=== PATIENT | female | born 1970 | race Caucasian/White ===

== ENCOUNTER 2019-01-24 03:27 | Emergency (ER) | payer OTHER, SELFPAY ==
[2019-01-24 03:28] VITALS: BP 147/98; PULSE 70; RESP 18; TEMP 36.6; O2SAT 98; BMI 28.8
--- NOTE | 2019-01-24 03:53 | ED.VISSUMM ---
- ER Visit Summary Date of Service: 01/24/19 Chief Complaint: Back pain History of Present Illness: The patient is a 48 F who presents with back pain. She does have a history of prior back pain. She complains of numbness as well as pain radiating down her left leg which she has had previously. She recently had a long car trip to [place] and her pain is been worse over the last week. She did recently complete a course of prednisone but her pain was worse since yesterday. She denies fevers, abdominal pain, urinary retention, fecal incontinence, history of back surgeries. She has been taking 800 mg ibuprofen as well as Tylenol which she states is taking the edge off. No fevers. Physical Examination: Afebrile vitals unremarkable Patient standing leaning against the bed and appears to be in pain Heart regular rate and rhythm Lungs clear Abdomen soft Back is nontender no reproducible tenderness 5 out of 5 strength with dorsiflexion, plantarflexion, extensor hallucis longus Test Results: Not indicated Emergency Department Course and Treatment: History and examination are consistent with lumbar radiculopathy. She does not have signs or symptoms of acute or surgical pathology such as epidural abscess or cauda equina syndrome. She has already been taking anti-inflammatories and also just completed steroids. Therefore we will treat with a short course of opiate analgesics. We also discussed the need for outpatient follow-up and that she may benefit from other therapies such as physical therapy. She was given [place] here and a prescription for the same. She intends to follow-up with her primary care physician. She understands to return for new or worsening symptoms. She was discharged. Treatment Plan: [] Disposition: Discharge Impression: Lumbar radiculopathy This note was generated with [employer] dictation software. It may contain incorrect words, spelling, and punctuation that were not noted in review of the chart prior to signing ED Disposition - Plan for ED Patient: Referrals: NOT,DEFINED [Primary Care Provider] -
--- NOTE | 2019-01-24 03:56 | DCINST.ED_ITS ---
ED Disposition - Plan for ED Patient: Instructions: BACK PAIN w/ SCIATICA Prescriptions: Hydrocodone Bitart/Apap 5-325 [[place] 5MG-325MG] 1 tab PO Q6H PRN PRN 3 Days #12 tab PRN Reason: Pain Prescription Printed Referrals: NOT,DEFINED [Primary Care Provider] -
[2019-01-24] MEDS: HYDROcodone Bitartrate/Apap 5/325 Tablet PO (04:01)
[2019-01-24 04:06] VITALS: RESP 20
== END 2019-01-24 04:15 | disposition home or self-care (01) ==
LOC: ED 04:09
PROVIDERS: Emergency Provider Emergency Medicine; Family Provider Student in an Organized Health Care Education/Training Program; PCP Student in an Organized Health Care Education/Training Program
DX: M54.16 Radiculopathy, lumbar region (principal); E03.9 Hypothyroidism, unspecified; Z79.899 Other long term (current) drug therapy
CPT/HCPCS: 99283

== ENCOUNTER → 2019-01-24 | Outpatient (CLI) | payer OTHER, SELFPAY ==
[2019-01-24 03:28] VITALS: BMI 28.8
--- NOTE | 2019-01-24 12:23 | RAD_ITS ---
STUDY: X-RAY - LUMBAR SPINE REASON FOR EXAM: Female, 48 years old. Chronic low back pain TECHNIQUE: 2 view(s) of the lumbar spine were obtained. COMPARISON: None FINDINGS: Normal lumbar lordosis. There is no substantial scoliosis. There is a normal alignment of the vertebrae. Bony structures are well-mineralized. No focal lytic or sclerotic bony lesions No evidence for acute fracture or subluxation. Disc space heights are well-maintained however there is very minor multilevel endplate spurring The soft tissue structures are unremarkable. RAD/Lumbar Spine 2 or 3 Views IMPRESSION: Mild spondylosis. No evidence for acute fracture or other significant bony pathology Electronically Signed: Niranjan Whittaker MD at 16:36 EDT , Service support ,
== END | disposition home or self-care (01) ==
PROVIDERS: Family Provider Student in an Organized Health Care Education/Training Program; PCP Student in an Organized Health Care Education/Training Program; Referring Provider Anesthesiology Pain Medicine; Visit Provider Anesthesiology Pain Medicine
DX: M54.9 Dorsalgia, unspecified (principal)
CPT/HCPCS: 72100

== ENCOUNTER → 2019-04-20 10:09 | Outpatient (CLI) | payer OTHER, SELFPAY ==
--- NOTE | 2019-04-20 10:22 | MRI_ITS ---
STUDY: MRI LUMBAR SPINE WITHOUT CONTRAST REASON FOR EXAM: Female, 48 years old. The patient presents with a history of low back pain with radiculopathic symptoms of the left leg and foot with numbness of the left foot x3 months. TECHNIQUE: Standardized fat and water weighted pulse sequences were obtained in the sagittal and axial planes. COMPARISON: X-RAY LUMBAR SPINE-January 24, 2019 FINDINGS: Vertebrae, Alignment and Curvature Vertebrae: There is a vertebral body hemangioma of the L2 vertebra and a right parasagittal location measuring approximately 19 mm in its craniocaudal dimension. Alignment: Normal. Curvature: Normal lordosis. No scoliosis. Thoracic Cord (visualized distal) / Conus Medullaris Normal. Terminates at the mid L1 vertebral body level Disc Space Levels N.B.: Normal level statement indicates: Normal endplates; disc height, signal and morphology; facet joints; central canal, lateral recesses, and intervertebral neuroformina. T12-L1: Normal. (Imaged only in the sagittal plane). L1-L2: Normal. L2-L3: There is mild disc desiccation with minimal annular bulging. Normal central canal and intervertebral neural foramina. L3-L4: There is disc desiccation with preservation of the disc height. There is no disc displacement. Normal central canal and intervertebral neural foramina. L4-L5: There is disc desiccation, preservation disc height, mild bilateral facet arthrosis, with a small posterior central disc protrusion (axial T2 series 5, image 8). Disc protrusion measures approximately 3 x 12 mm (AP, transverse), and is producing ventral thecal sac flattening. There remains a large central canal patent intervertebral neural foramina. L5-S1: There is disc desiccation, moderate loss of the disc height, circumferential annular bulging, moderate bilateral facet arthrosis with a posterior central to left foraminal disc herniation of broad-based disc protrusion type measuring 5 x 22 mm (AP x transverse), producing leftward ventral thecal sac flattening with neural impingement upon the descending left S1 nerve root. The intervertebral neural foramina remain widely patent. There is a small perineural cyst involving the exiting right L5 nerve root (sagittal T2 series 2, image 11; axial T2 series 5, image 25). Sacral Alae: Normal. Retroperitoneum and Paraspinal Structures Kidneys: Partially imaged with no demonstrated abnormality. Aorta: Normal. Inferior Vena Cava: Normal. Lymph Nodes: None visualized. Muscles (Paraspinal): Normal. MRI/Spine Lumbar (Routine) IMPRESSION: 1. L2-3 and L3-4 mild disc desiccation. 2. L4-5 small posterior central disc protrusion without neural impingement. 3. L5-S1 facet arthrosis with a posterior central to left foraminal disc herniation of broad-based protrusion type producing neural impingement upon the descending left S1 nerve root. Electronically Signed: Edil Braxton DO at 15:31 EDT Tel , Service support ,
== END ==
PROVIDERS: Family Provider Student in an Organized Health Care Education/Training Program; PCP Student in an Organized Health Care Education/Training Program; Referring Provider Anesthesiology Pain Medicine; Visit Provider Anesthesiology Pain Medicine
DX: M54.9 Dorsalgia, unspecified (principal); R29.898 Other symptoms and signs involving the musculoskeletal system
CPT/HCPCS: 72148

== ENCOUNTER 2021-06-16 19:02 | Emergency (ER) | payer OTHER, SELFPAY ==
[2021-06-16 19:04] VITALS: BP 145/85; PULSE 86; RESP 18; TEMP 36.3; O2SAT 100; BMI 28.8
[2021-06-16] MEDS: MethylPREDNISolone 125 MG/2 ML Vial IV (19:23)
[2021-06-16] MEDS: DiphenhydrAMINE 50 MG/ML Syringe 25 MG IV (19:25)
[2021-06-16 19:28] VITALS: BP 141/83; PULSE 79; RESP 14; O2SAT 100
--- NOTE | 2021-06-16 19:30 | EX.ED.DYSGE1 ---
HPI History of Present Illness Chief Complaint: Allergic Reaction Detail of Chief Complaint: Rash and facial swelling Informant: patient Onset/Context/Timing Onset: Hours (Onset 1400) Context: Sudden Onset Timing: Continuous Quality: Patient reports rash 2 days ago. She has rash today with facial swelling Current Severity: Moderate Maximum Severity: Moderate Worsened by: Unknown Relieved by: Nothing Associated Symptoms Associated Symptoms: Trouble swallowing Narrative Narrative: Patient is a 50-year-old woman who presents with rash that she first noted 2 days ago. She states the rash is pruritic. She states she has recurrence of the rash and involves the back of her neck anterior neck torso and extremities. It is pruritic. She also has swelling of her lips. Initially lower lip now upper lip. She also reports difficulty swallowing. She denies muffled voice. There may be slight change in her voice. She states it is difficult to swallow. She is not on an DELMI inhibitor. She has not had any berries, nuts or shellfish today. She has no known food allergies. She has no known medication allergies. She does have history of hypothyroidism. Patient has no other complaints. Prior similar symptoms: No Recent Illness/Hospitalization: No PFSH PFS Medical History Depression High cholesterol Hypothyroidism Low vitamin D level Home Medications bupropion HCl 150 mg PO DAILY 01/24/19 [History Last Taken Unknown] escitalopram oxalate 20 mg PO DAILY 01/24/19 [History Last Taken Unknown] levothyroxine 125 mcg PO DAILY 01/24/19 [History Last Taken Unknown] cholecalciferol (vitamin D3) 50,000 unit PO QWEEK 06/16/21 [History Last Taken Unknown] coenzyme Q10 [Co Q-10] 200 mg PO DAILY 06/16/21 [History Last Taken Unknown] epinephrine [EpiPen 2-Navjot] 0.3 mg IM UD PRN #2 ea 06/16/21 [Rx Last Taken Unknown] rosuvastatin 10 mg PO DAILY 06/16/21 [History Last Taken Unknown] Allergy/AdvReac Type Severity Reaction Status Date / Time No Known Allergies Allergy Verified 06/16/21 19:06 Surgical History History of bilateral fallopian tube excision Hx of lumbar discectomy Social History (Updated 06/16/21 @ 19:[address] Moris Mark MD) household members: spouse Smoking Status: Never smoker substance use type: does not use ROS ROS ED Constitutional Constitutional ED: Denies chills, fever(s), subjective, sweats or weight loss Eyes Eyes: Denies blurry vision or change in vision ENT ENT ED: Denies ear pain, rhinorrhea or sore throat Cardiovascular Cardiovascular: Denies chest pain, orthopnea or palpitations Respiratory/Chest Respiratory/Chest: Denies cough, dyspnea, dyspnea on exertion or orthopnea Gastrointestinal Gastrointestinal: Denies abdominal pain, diarrhea, nausea or vomiting Genitourinary Genitourinary ED: Denies dysuria, hematuria or urinary frequency Musculoskeletal Musculoskeletal: Denies arthralgias, back pain, myalgias or neck pain Integumentary Reports rash Neurologic Neurologic: Denies headache(s) or weakness Endocrine Endocrinology: Denies polydipsia or polyuria Allergic/Immunologic Allergic/Immunologic ED: Reports mouth swelling and urticaria; Denies tongue swelling EXAM Physical Exam Const Vital Signs: 06/16/21 19:04 06/16/21 19:28 06/16/21 20:10 Temperature 97.3 F L Temperature Source Temporal Pulse Rate 86 79 82 Respiratory Rate 18 14 18 Blood Pressure 145/85 H 141/83 H 130/73 H Blood Pressure Mean 105 102 92 Pulse Ox 100 100 97 Oxygen Delivery Method Room Air Room Air 06/16/21 22:02 Temperature Temperature Source Pulse Rate 85 Respiratory Rate 15 Blood Pressure 118/76 Blood Pressure Mean 90 Pulse Ox 96 Oxygen Delivery Method Room Air Positive well nourished and well developed General Appearance ED: well developed and NAD; Negative for pallor HEENT HEENT Narrative: Head is atraumatic normocephalic. Ears normal. Nares patent. Patient does have evidence of angioedema lower lip greater than upper. There is swelling of the soft palate and uvula. Mallampati score is 3. Eyes PERRL and EOMs intact bilaterally General Eye ED: Negative for pale conjunctiva or scleral icterus Neck no lymphadenopathy, supple and no JVD Neck Narrative: Trachea is midline. There is no inspiratory expiratory stridor. Resp normal respiratory effort and clear to auscultation bilaterally Cardio regular rate, regular rhythm, S1 normal heart sound, S2 normal heart sound and no murmurs GI normal to inspection, nondistended, normoactive bowel sounds, non-tender and non-distended Palpation: soft Back/Spine no CVA tenderness Cervical Spine: Negative for cervical spine tenderness Thoracic Spine / Upper Back: Negative for thoracic spinal tenderness or paraspinal muscle tenderness Extremity normal to inspection Neuro oriented x3 and CN's II-XII intact bilaterally Sensorium / Orientation: alert Sensory Exam: sensory level loss detected Motor Exam: strength 5/5 throughout Psych mental status grossly normal Skin No no rashes or lesions noted, no wounds and skin turgor normal General Skin Exam: Negative for jaundice or pallor Rashes: rashes noted MDM MDM MDM Narrative Medical decision making narrative: Patient presents with allergic angioedema. She has a generalized reaction. Because of her concerning angioedema she treated with epinephrine and IV diphenhydramine, Pepcid and methylprednisolone. Patient was informed she will be observed for 4 to 6 hours. Nurse informed that she feels that her throat titer. She was reexamined. The soft palate and uvula are no longer swollen. Trachea is still midline. There is no inspiratory expiratory stridor. Her rash is improving. She was reassessed at 194. Patient was reassessed at 2019. She reports improvement. Her rash is 90% better. There is no evidence of angioedema at this time. Will reassess in 30 minutes. Patient was assessed at 2148. She reports improvement. There is no dysphonia, there is no dysphagia. Her rash is essentially resolved. She is able to drink water. Patient was reassessed at 2227. Her symptoms have totally resolved. Patient was reassessed at 2256. Patient remains asymptomatic and there are no objective finding;, therefore, patient will be discharged to home. Critical Care Time Critical Care Time: Yes Critical care time (excluding procedures): 30-74 minutes (33 minutes), Including time spent: (History, physical, documentation, initiation of treatment, repeated evaluation), Discussing w/Patient &/or Family/Surveyor Hydrographic and Performing Direct Patient Care at Bedside Discharge Plan Triage Chief Complaint: Allergic Reaction ED Provider: Moris Mark Dx/Rx/DC Orders Clinical Impression: Allergic angioedema Instructions: ED General Allergic Reactions, ED Angioedema Prescriptions: New epinephrine [EpiPen 2-Navjot] 0.3 mg/0.3 mL auto-injector 0.3 mg IM UD PRN (Reason: Generalized allergic reaction) Qty: 2 RF: 0 No Action levothyroxine 88 MCG tablet 125 mcg PO DAILY RF: 0 escitalopram oxalate 20 MG tablet 20 mg PO DAILY RF: 0 bupropion HCl 150 MG tablet extended release 24 hr 150 mg PO DAILY RF: 0 rosuvastatin 10 mg tablet 10 mg PO DAILY RF: 0 coenzyme Q10 [Co Q-10] 200 mg Capsule 200 mg PO DAILY RF: 0 cholecalciferol (vitamin D3) 1,250 mcg (50,000 unit) capsule 50,000 unit PO QWEEK RF: 0 Primary Care Provider: Darrell Ornelas Referrals: Darrell Ornelas DO [Primary Care Provider] - 3-5 Days (Analilia will need allergy testing to determine the cause of her generalized reaction with angioedema) Disposition Disposition: Home, Self Care
[2021-06-16] MEDS: Famotidine 200 MG/20 ML MDV 20 MG in 0.9% Normal Saline (Pres. free 8 ML 300 MG IV (19:49)
[2021-06-16 20:10] VITALS: BP 130/73; PULSE 82; RESP 18; O2SAT 97
[2021-06-16 22:02] VITALS: BP 118/76; PULSE 85; RESP 15; O2SAT 96
[2021-06-16 23:03] VITALS: BP 120/73; PULSE 84; RESP 16; O2SAT 94
== END 2021-06-16 23:47 | disposition home or self-care (01) ==
PROVIDERS: Emergency Provider Emergency Medicine; PCP Student in an Organized Health Care Education/Training Program
DX: T78.3XXA Angioneurotic edema, initial encounter (principal); E03.9 Hypothyroidism, unspecified; F32.A Depression, unspecified; E78.00 Pure hypercholesterolemia, unspecified; E55.9 Vitamin D deficiency, unspecified; Z79.899 Other long term (current) drug therapy
CPT/HCPCS: 96372; 96374; 96375; 99283; A4216; J3490

== ENCOUNTER 2021-06-18 07:15 | Emergency (ER) | payer OTHER, SELFPAY ==
[2021-06-18 07:16] VITALS: BP 158/105; PULSE 87; RESP 20; TEMP 36.4; O2SAT 98; BMI 28.8
--- NOTE | 2021-06-18 07:48 | CT_ITS ---
STUDY: CT SOFT TISSUE NECK WITH CONTRAST REASON FOR EXAM: Female, 50 years old. Cough. Sore throat. Allergic angioedema. RADIATION DOSAGE (If Supplied By Facility): CTDIvol = ( 17.82 ) mGy, DLP = ( 574.21 ) mGycm TECHNIQUE: The patient was scanned in a multi-detector CT scanner. High resolution transaxial imaging was performed following intravenous administration of IV 75mL Isovue-370. Sagittal and coronal images were reconstructed. Individualized dose optimization techniques were used for this CT. COMPARISON: None. FINDINGS: Normal bilateral parotid glands. Normal bilateral statistician spaces. Normal bilateral parapharyngeal spaces. Normal bilateral carotid spaces. Normal bilateral sublingual and submandibular glands and spaces. Normal visualized nasopharynx. Normal retropharyngeal space. Normal perivertebral space. Normal visualized bilateral faucial tonsils. The visualized tongue, tongue base and oropharynx are normal. There are minimally enlarged lymph nodes of the neck, with preservation of normal sriram architecture, consistent with a reactive lymph hyperplasia. There is no demonstrated solid or cystic mass lesion. There is no abnormal contrast enhancement. Normal epiglottis, bilateral vallecula and hypopharynx. The pre-epiglottic and paraglottic adipose spaces are normal. Normal visualized bilateral piriform sinuses, aryepiglottic folds, vocal cords, and arytenoid-cricoid articulations. Normal subglottic trachea. Normal bilateral lobes of the thyroid gland. Normal visualized pulmonary apices. Normal visualized paranasal sinuses. Normal visualized cervical spine. CT/Soft Tissue Neck WITH Contrast IMPRESSION: Normal enhanced CT examination of the soft tissues of the neck. Electronically Signed: Dayton Hogan MD at 9:00 EST , Service support ,
--- NOTE | 2021-06-18 07:49 | EDS_ITS ---
HPI History of Present Illness Chief Complaint: Sore Throat Informant: patient Narrative Narrative: Patient seen in the emergency department today for the chief complaint of sore throat. Patient states that 2 nights ago she was seen in the emergency department with angioedema. That improved and the patient has been taking Zyrtec and Benadryl. Last night she developed a sore throat with continued symptoms this morning. No cough or rhinorrhea. She notes she has been experiencing dermatographia. No difficulty swallowing. She states her neck feels swollen. [facility] Medical History Depression High cholesterol Hypothyroidism Low vitamin D level Home Medications bupropion HCl 150 mg PO DAILY 01/24/19 [History Last Taken Unknown] escitalopram oxalate 20 mg PO DAILY 01/24/19 [History Last Taken Unknown] levothyroxine 125 mcg PO DAILY 01/24/19 [History Last Taken Unknown] cholecalciferol (vitamin D3) 50,000 unit PO QWEEK 06/16/21 [History Last Taken Unknown] coenzyme Q10 [Co Q-10] 200 mg PO DAILY 06/16/21 [History Last Taken Unknown] epinephrine [EpiPen 2-Navjot] 0.3 mg IM UD PRN #2 ea 06/16/21 [Rx Last Taken Unknown] rosuvastatin 10 mg PO DAILY 06/16/21 [History Last Taken Unknown] prednisone See Rx Instructions .ROUTE .COMPLEX #24 tablet 06/18/21 [Rx Last Taken Unknown] Allergy/AdvReac Type Severity Reaction Status Date / Time No Known Allergies Allergy Verified 06/18/21 08:03 Surgical History History of bilateral fallopian tube excision Hx of lumbar discectomy Social History household members: spouse Smoking Status: Never smoker substance use type: does not use ROS ROS ED Constitutional Constitutional ED: Denies chills or weight loss Eyes Eyes: Denies change in vision or diplopia ENT ENT ED: Reports sore throat; Denies ear pain or rhinorrhea Cardiovascular Cardiovascular: Denies chest pain, orthopnea, palpitations or racing heartbeat Respiratory/Chest Respiratory/Chest: Denies cough, dyspnea or orthopnea Gastrointestinal Gastrointestinal: Denies abdominal pain, diarrhea, nausea or vomiting Genitourinary Genitourinary ED: Denies dysuria, hematuria or urinary frequency Musculoskeletal Musculoskeletal: Denies arthralgias or myalgias Integumentary Reports rash; Denies abscess Neurologic Neurologic: Denies headache(s) or weakness Psychiatric Psychiatric: Denies anxiety, depression, suicidal ideation or suicidal thoughts Endocrine Endocrinology: Denies polydipsia, polyphagia or polyuria Allergic/Immunologic Allergic/Immunologic ED: Denies mouth swelling, tongue swelling or urticaria EXAM Physical Exam Const Vital Signs: 06/18/21 07:16 Temperature 97.5 F L Temperature Source Temporal Pulse Rate 87 Respiratory Rate 20 H Blood Pressure 158/105 H Blood Pressure Mean 122 Pulse Ox 98 Oxygen Delivery Method Room Air Positive well nourished and well developed General Appearance ED: well developed HEENT Reports normocephalic, head/scalp atraumatic, TM's clear and moist mucous membranes HEENT Narrative: There is no swelling of the tongue or the floor the mouth. There is no trismus. No stridor. Uvula appears normal. I do not see any erythema on oropharyngeal examination. She is able to lay back in the 30 degree position Tympanic Membrane ED: Yes TM's clear Eyes PERRL and EOMs intact bilaterally Neck no lymphadenopathy, supple and no JVD Resp normal respiratory effort and clear to auscultation bilaterally Cardio regular rate, regular rhythm and no murmurs GI normal to inspection, nondistended, normoactive bowel sounds and non-tender Palpation: soft Back/Spine no CVA tenderness and normal ROM Extremity normal to inspection General Extremety ED: Negative for edema General Extremity: Negative for edema Neuro oriented x3 and CN's II-XII intact bilaterally Sensorium / Orientation: alert Motor Exam: strength 5/5 throughout Psych mental status grossly normal Mood & Affect: Negative for depressed or tearful Skin no rashes or lesions noted and no wounds MDM MDM MDM Narrative Medical decision making narrative: White count is normal at 9.7. Creatinine 1.04. Soft tissue neck CT with IV contrast was negative. Patient received a dose of steroids here in the department. This point I am not seeing an obvious infectious cause. Perhaps the sore throat is related to her recent angioedema. However I do not see any airway impingement. Think would be reasonable with her continued dermatographia to place her on some steroids. Return if worsening or concerns Lab Data Attestation: I reviewed the patient's lab results. Labs: Laboratory Results - last 24 hr 06/18/21 06/18/21 07:59 07:59 WBC 9.7 RBC 4.29 Hgb 12.4 Hct 38.0 MCV 88.6 MCH 28.9 MCHC 32.6 RDW Std Deviation 43.8 RDW Coeff of [place] 13.5 Plt Count 251 MPV 11.2 Immature Gran % (Auto) 0.300 Neut % (Auto) 46.5 L Lymph % (Auto) 46.7 H [place] % (Auto) 5.8 Eos % (Auto) 0.5 Baso % (Auto) 0.2 Absolute Neuts (auto) 4.5 Absolute Lymphs (auto) 4.52 H Nucleated RBC % 0 Sodium 142 Potassium 3.6 Chloride 108 H Carbon Dioxide 29.0 Anion Gap 5 BUN 17 Creatinine 1.04 H Estim Creat Clear Calc 63.83 Est GFR (MDRD) Af Amer 71 Est GFR (MDRD) Non-Af 59 L BUN/Creatinine Ratio 16.3 Glucose 89 Calcium 8.9 Total Bilirubin 0.30 AST 13 L ALT 34 Alkaline Phosphatase 64 Total Protein 6.5 Albumin 3.2 Globulin 3.3 Albumin/Globulin Ratio 1.0 Radiography Diagnostic Testing: Clinical Impression(s) from Imaging Studies Soft Tissue Neck CT 06/18/21 07:48 IMPRESSION: Normal enhanced CT examination of the soft tissues of the neck. Electronically Signed: Dayton Hogan MD at 9:00 EST , Service support , Discharge Plan Triage Chief Complaint: Sore Throat ED Provider: Mohit Verma Dx/Rx/DC Orders Clinical Impression: Acute sore throat Instructions: ED Pain, Acute, Uncertain Cause Prescriptions: New prednisone 20 MG tablet See Rx Instructions .ROUTE .COMPLEX Qty: 24 RF: 0 No Action levothyroxine 88 MCG tablet 125 mcg PO DAILY RF: 0 escitalopram oxalate 20 MG tablet 20 mg PO DAILY RF: 0 bupropion HCl 150 MG tablet extended release 24 hr 150 mg PO DAILY RF: 0 rosuvastatin 10 mg tablet 10 mg PO DAILY RF: 0 coenzyme Q10 [Co Q-10] 200 mg Capsule 200 mg PO DAILY RF: 0 cholecalciferol (vitamin D3) 1,250 mcg (50,000 unit) capsule 50,000 unit PO QWEEK RF: 0 epinephrine [EpiPen 2-Navjot] 0.3 mg/0.3 mL auto-injector 0.3 mg IM UD PRN (Reason: Generalized allergic reaction) Qty: 2 RF: 0 Primary Care Provider: Darrell Ornelas Referrals: Darrell Ornelas, DO [Primary Care Provider] - 3-5 Days if not improving Disposition Disposition: Home, Self Care
[2021-06-18] MEDS: MethylPREDNISolone 125 MG/2 ML Vial IV (08:05)
[2021-06-18 08:08] LABS: Absolute Lymphocyte Count 4.52 X10^3/uL (0.83-4.51); Absolute Neutrophil Count 4.5 X10^3/uL (2.0-7.7); Basophil# 0.02 X10^3/uL; Basophil% 0.2 % (0-1); Eosinophil# 0.05 X10^3/uL; Eosinophils% 0.5 % (0-5); Hemoglobin 12.4 g/dL (12.0-15.0); Lymphocyte # 4.52 X10^3/ul (0.83-4.51); Lymphocyte % 46.7 % (19-41); Mean Corp Hgb Conc 32.6 g/dL (32-36); Mean Corpuscular Hgb 28.9 pg (27.0-32.0); Mean Corpuscular Volume 88.6 fL (81-99); Mean Platelet Vol. 11.2 fl (6.2-12.0); Monocyte# 0.56 X10^3/uL; Monocyte% 5.8 % (0-10); NRBC Flagged by Analyzer 0 % (0-5); Neutrophil # 4.49 X10^3/uL (2.7-7.7); Neutrophil % 46.5 % (47-70); Platelet Count 251 K/mm3 (150-450); RBC Distribution Width CV 13.5 % (11.6-14.6); RBC Distribution Width SD 43.8 fl (35.1-43.9); Red Blood Count 4.29 M/mm3 (4.2-5.4); White Blood Count 9.7 K/mm3 (4.4-11.0)
[2021-06-18 08:24] LABS: AST(SGOT) 13 U/L (15-37); Alanine Aminotransfer ALT/SGPT 34 U/L (13-56); Albumin, Serum 3.2 g/dL (3.2-5.0); Alkaline Phosphatase 64 U/L (45-117); Anion Gap 5 (5-15); BUN 17 mg/dL (7-18); BUN/Creat Ratio 16.3 RATIO (10-20); Calcium,Total 8.9 mg/dL (8.5-10.1); Chloride 108 mmol/L (98-107); Creatinine, Serum 1.04 mg/dL (0.55-1.02); EST Glomerular Filtration Rate 59 mL/min (>60); Est Glom Filt Rate - Afr Amer 71 mL/min (>60); Estimated Creatinine Clearance 63.83 ml/min; Globulin 3.3 g/dL (2.2-4.2); Glucose 89 mg/dL (74-106); Potassium 3.6 mmol/L (3.5-5.1); Protein, Total 6.5 g/dL (6.4-8.2); Sodium Level 142 mmol/L (136-145)
== END 2021-06-18 11:30 | disposition home or self-care (01) ==
PROVIDERS: Emergency Provider Emergency Medicine; PCP Student in an Organized Health Care Education/Training Program
DX: J02.9 Acute pharyngitis, unspecified (principal); E03.9 Hypothyroidism, unspecified; E78.00 Pure hypercholesterolemia, unspecified; F32.A Depression, unspecified; E55.9 Vitamin D deficiency, unspecified; Z79.899 Other long term (current) drug therapy
CPT/HCPCS: 70491; 80053; 85025; 96374; 99283; Q9967; A4216

== ENCOUNTER → 2021-06-19 13:26 | Outpatient (CLI) | payer OTHER, SELFPAY ==
[2021-06-19 13:45] LABS: Bacteria 0 SEEN /hpf (None Seen); Mucous, Urine 0 SEEN /hpf (<or=2+); Red Blood Cells-Urine 0 SEEN /hpf (0-5)
[2021-06-19 15:55] LABS: Color, Urine Yellow (Yellow); Glucose, Dipstick Normal (Normal); Ketone-Dipstick Negative (Negative); Leukocyte Esterase-Dipstick 25 /ul (Negative); Nitrite-Dipstick Negative (Negative); Occult Blood-Urine Negative /ul (Negative); Protein-Dipstick Negative (Negative); Specific Gravity, Urine 1.015 (1.002-1.030); Urine Bilirubin Dipstick Negative (Negative); Urine Clarity Clear (Clear); Urine Urobilinogen Normal (Normal)
[2021-06-19 16:13] LABS: Squamous Epithelial Cells - UA 0-5 SEEN /hpf (5-10); White Blood Cells 0-5 SEEN /hpf (0-5)
[2021-06-19 16:17] LABS: Anion Gap 6 (5-15); BUN 17 mg/dL (7-18); BUN/Creat Ratio 17.3 RATIO (10-20); Calcium,Total 9.4 mg/dL (8.5-10.1); Chloride 106 mmol/L (98-107); Creatinine, Serum 0.98 mg/dL (0.55-1.02); EST Glomerular Filtration Rate 63 mL/min (>60); Est Glom Filt Rate - Afr Amer 76 mL/min (>60); Glucose 108 mg/dL (74-106); Sodium Level 141 mmol/L (136-145)
[2021-06-24 16:09] LABS: Crab <0.10 kU/L (Class 0); Lobster <0.10 kU/L (Class 0)
[2021-06-24 16:59] LABS: Clam <0.10 kU/L (Class 0); Shrimp <0.10 kU/L (Class 0)
== END ==
PROVIDERS: PCP Student in an Organized Health Care Education/Training Program; Visit Provider Student in an Organized Health Care Education/Training Program
DX: L50.9 Urticaria, unspecified (principal); T78.3XXD Angioneurotic edema, subsequent encounter
CPT/HCPCS: 36415; 80048; 81001; 83520; 86003

== ENCOUNTER → 2021-07-27 09:06 | Outpatient (CLI) | payer OTHER, SELFPAY ==
[2021-07-27 09:36] LABS: Absolute Lymphocyte Count 2.57 X10^3/uL (0.83-4.51); Absolute Neutrophil Count 2.2 X10^3/uL (2.0-7.7); Basophil# 0.03 X10^3/uL; Basophil% 0.5 % (0-1); Eosinophil# 0.14 X10^3/uL; Eosinophils% 2.5 % (0-5); Hematocrit 39.1 % (37-47); Hemoglobin 12.7 g/dL (12.0-15.0); Lymphocyte # 2.57 X10^3/ul (0.83-4.51); Lymphocyte % 46.7 % (19-41); Mean Corp Hgb Conc 32.5 g/dL (32-36); Mean Corpuscular Volume 89.3 fL (81-99); Mean Platelet Vol. 10.9 fl (6.2-12.0); Monocyte# 0.57 X10^3/uL; Monocyte% 10.4 % (0-10); NRBC Flagged by Analyzer 0 % (0-5); Neutrophil # 2.18 X10^3/uL (2.7-7.7); Neutrophil % 39.7 % (47-70); Platelet Count 269 K/mm3 (150-450); RBC Distribution Width CV 13.5 % (11.6-14.6); RBC Distribution Width SD 43.8 fl (35.1-43.9); Red Blood Count 4.38 M/mm3 (4.2-5.4); White Blood Count 5.5 K/mm3 (4.4-11.0)
[2021-07-27 09:54] LABS: Erythrocyte Sedimentation Rate 6 mm/hr (0-30)
[2021-07-27 10:20] LABS: AST(SGOT) 19 U/L (15-37); Alanine Aminotransfer ALT/SGPT 33 U/L (13-56); Albumin, Serum 3.3 g/dL (3.2-5.0); Alkaline Phosphatase 63 U/L (45-117); Bilirubin, Direct 0.11 mg/dL (0.00-0.30); Globulin 3.7 g/dL (2.2-4.2); Thyroid Stim Hormone (TSH) 0.23 uIU/mL (0.358-3.74)
== END ==
PROVIDERS: PCP Student in an Organized Health Care Education/Training Program
DX: L50.8 Other urticaria (principal)
CPT/HCPCS: 36415; 80076; 84443; 85025; 85652

== ENCOUNTER 2021-09-14 07:18 | Outpatient (CLI) | payer OTHER, SELFPAY ==
--- NOTE | 2021-09-14 07:21 | US_ITS ---
STUDY: ABDOMINAL ULTRASOUND - RIGHT UPPER QUADRANT REASON FOR VISIT: Female, 51 years old FATTY LIVER TECHNIQUE: Ultrasound evaluation of the right upper quadrant was performed with real-time and static flynn-scale imaging. TECHNICAL QUALITY: Adequate. COMPARISON: None. FINDINGS: Liver: The liver measures 14.9 cm. There is increased echogenicity consistent with fatty infiltration. The bile ducts are within normal limits. There is hepatic color flow. The direction of portal flow is hepatopetal. There is no demonstrated mass lesion. Gallbladder: Normal distended gallbladder. The gallbladder wall measures 2.8 mm. There is a negative sonographic Mendez''s sign. There is no pericholecystic fluid. There are no gallstones. Common Bile Duct (C.B.D.): The common bile duct measures 5.1 mm. Pancreas: Normal size of the head, body and tail of the pancreas. There is normal echogenicity of the pancreas. There is no demonstrated pancreatic mass or cyst. Right Kidney: Normal size of the right kidney. The right kidney measures 10.9 cm x 4.7 cm x 5.2 cm. Normal renal cortex. The right cortex measures 1.5 cm. There is no demonstrated renal mass or cyst. There is no right hydronephrosis. US/Abdomen Limited IMPRESSION: Fatty infiltration of the liver. Electronically Signed: Dayton Hogan MD at 14:52 EST ,
--- NOTE | 2021-09-14 07:22 | US_ITS ---
STUDY: ABDOMINAL ULTRASOUND - ELASTOGRAPHY REASON FOR VISIT: Female, 51 years old. Fatty liver. TECHNIQUE: Liver stiffness measurements were obtained on a Snapette RS 85 ultrasound machine using a CA 1-7 probe following the SRU guidelines. 3 measurements were obtained using a 2-D-SWE method. The IQR/M was 20 % suggesting a quality data set. TECHNICAL QUALITY: Adequate. COMPARISON: Comparison is made with prior examination from earlier today. FINDINGS: Liver: Fatty infiltration of the liver. Median liver stiffness measured 7 kPa. US/Elastography Parenchyma/Organ IMPRESSION: Liver stiffness measures 7 kPa compatible with F 2/F3 Metavir score. Electronically Signed: Dayton Hogan MD at 15:37 EST ,
== END 2021-09-14 23:59 | disposition home or self-care (01) ==
PROVIDERS: PCP Student in an Organized Health Care Education/Training Program; Referring Provider Student in an Organized Health Care Education/Training Program; Visit Provider Student in an Organized Health Care Education/Training Program
DX: K76.0 Fatty (change of) liver, not elsewhere classified (principal)
CPT/HCPCS: 76705; 76981

== ENCOUNTER 2021-09-25 11:21 | Outpatient (CLI) | payer OTHER, SELFPAY ==
[2021-09-25 12:18] LABS: Erythrocyte Sedimentation Rate 6 mm/hr (0-30)
[2021-09-25 12:46] LABS: CRP 5.41 mg/L (0.0-3.0); Ferritin 26 ng/mL (8-252); LDH 201 U/L (84-246)
[2021-09-25 12:55] LABS: Hemoglobin A1c 5.4 % (3.8-5.6)
[2021-09-25 13:12] LABS: HIV - WCH Non-Reactive (Nonreactive)
[2021-09-26 15:08] LABS: Anti-Centromere B Ab <0.2 AI (0.0-0.9); Anti-Chromatin <0.2 AI (0.0-0.9); Anti-Jo <0.2 AI (0.0-0.9); Anti-Scleroderma-70 AB <0.2 AI (0.0-0.9); RNP Ab <0.2 AI (0.0-0.9); SJOGREN'S Anti-SS-A test < 0.2 AI (0.0-0.9); SJOGREN'S Anti-SS-B test < 0.2 AI (0.0-0.9); Smith Ab <0.2 AI (0.0-0.9)
[2021-09-27 17:22] LABS: Anti-Mitochondrial AB <20.0 Units (0.0-20.0); Anti-dsDNA Ab <1 IU/mL (0-9)
[2021-09-29 17:08] LABS: Angiotensin Convert Enzyme 33 U/L (14-82); Ceruloplasmin 24.1 mg/dL (19.0-39.0); Cytoplasmic Ab (C-ANCA) <1:20 titer (Neg:<1:20); HEPATITIS B SURFACE AG Negative (Negative); Hepatitis A IgM Antibody Negative (Negative); Hepatitis B Core AB IgM Negative (Negative)
[2021-09-29 17:43] LABS: AFP, Tumor Marker 5.5 ng/mL (0.0-9.2); Anti-Smooth Muscle ABS 8 Units (0-19); Copper, Serum or Plasma 103 ug/dL (80-158); Haptoglobin 114 mg/dL (33-346); Hep C Antibodies <0.1 s/co ratio (0.0-0.9); Perinuclear Ab (P-ANCA) <1:20 titer (Neg:<1:20)
== END 2021-09-25 23:59 | disposition home or self-care (01) ==
PROVIDERS: PCP Student in an Organized Health Care Education/Training Program; Visit Provider Internal Medicine Gastroenterology
DX: K76.0 Fatty (change of) liver, not elsewhere classified (principal)
CPT/HCPCS: 36415; 80074; 82105; 82164; 82390; 82525; 82728; 83010; 83036; 83516; 83615; 85652; 86140; 86225; 86235; 86256; 86703

== ENCOUNTER 2021-10-16 07:28 | Outpatient (CLI) | payer OTHER, SELFPAY ==
[2021-10-16 08:42] LABS: AST(SGOT) 39 U/L (15-37); Alanine Aminotransfer ALT/SGPT 59 U/L (13-56); Albumin, Serum 3.7 g/dL (3.2-5.0); Alkaline Phosphatase 105 U/L (45-117); Anion Gap 3 (5-15); BUN 12 mg/dL (7-18); BUN/Creat Ratio 11.3 RATIO (10-20); Calcium,Total 9.5 mg/dL (8.5-10.1); Chloride 107 mmol/L (98-107); Cholesterol 156 mg/dL (200); Creatinine, Serum 1.06 mg/dL (0.55-1.02); EST Glomerular Filtration Rate 58 mL/min (>60); Est Glom Filt Rate - Afr Amer 70 mL/min (>60); Free T3 1.9 pg/mL (2.18-3.98); Globulin 3.6 g/dL (2.2-4.2); Glucose 103 mg/dL (74-106); High Density Lipoprotein 43 mg/dL; Potassium 4.1 mmol/L (3.5-5.1); Protein, Total 7.3 g/dL (6.4-8.2); Sodium Level 139 mmol/L (136-145); T4 Free Direct 0.76 ng/dL (0.76-1.46); Thyroid Stim Hormone (TSH) 1.43 uIU/mL (0.358-3.74); Triglycerides 185 mg/dL; Very Low Density Lipoprotein 37 mg/dL (5-40)
[2021-10-16 09:42] LABS: Vitamin D,25 Hydroxy 63.6 ng/mL
[2021-10-16 18:18] LABS: CPK Total, Creatine Kinase 124 U/L (26-192)
[2021-10-17 10:32] LABS: Thyroid Peroxidase AB 18 IU/mL (0-34)
== END 2021-10-16 23:59 | disposition home or self-care (01) ==
LOC: LAB 07:31
PROVIDERS: PCP Student in an Organized Health Care Education/Training Program; Referring Provider Internal Medicine Gastroenterology; Visit Provider Internal Medicine Gastroenterology
DX: E06.3 Autoimmune thyroiditis (principal); E55.9 Vitamin D deficiency, unspecified; E78.5 Hyperlipidemia, unspecified
CPT/HCPCS: 36415; 80053; 80061; 82306; 82550; 83090; 84439; 84443; 84481; 86376

== ENCOUNTER 2021-11-02 12:46 | Outpatient (CLI) | payer OTHER, SELFPAY ==
[2021-11-02 14:03] LABS: Uric Acid 4.8 mg/dL (2.6-6.0)
== END 2021-11-02 23:59 | disposition home or self-care (01) ==
LOC: LAB 12:47
PROVIDERS: PCP Student in an Organized Health Care Education/Training Program; Referring Provider Internal Medicine Gastroenterology; Visit Provider Internal Medicine Gastroenterology
DX: M10.9 Gout, unspecified (principal)
CPT/HCPCS: 36415; 84550

== ENCOUNTER → 2022-03-05 | Outpatient (CLI) | payer OTHER, SELFPAY ==
[2022-03-05 16:39] LABS: Erythrocyte Sedimentation Rate 17 mm/hr (0-30)
[2022-03-05 17:04] LABS: CRP < 2.90 mg/L (0.0-3.0)
[2022-03-11 16:09] LABS: Alternaria alternata <0.10 kU/L (Class 0); Aspergillus fumigatus <0.10 kU/L (Class 0); Bahia Grass <0.10 kU/L (Class 0); Bermuda Grass <0.10 kU/L (Class 0); Bluegrass, Kentucky <0.10 kU/L (Class 0); Cat Hair/Dander, Standard <0.10 kU/L (Class 0); Cedar, Mountain <0.10 kU/L (Class 0); Cladosporium herbarum <0.10 kU/L (Class 0); Clam <0.10 kU/L (Class 0); Cockroach, American <0.10 kU/L (Class 0); Codfish <0.10 kU/L (Class 0); Corn <0.10 kU/L (Class 0); D farinae Mite <0.10 kU/L (Class 0); D pteronyssinus <0.10 kU/L (Class 0); Dog Epithelia <0.10 kU/L (Class 0); Egg, White <0.10 kU/L (Class 0); Elm, American White <0.10 kU/L (Class 0); Hazelnut Tree <0.10 kU/L (Class 0); Hickory, White <0.10 kU/L (Class 0); Johnson Grass <0.10 kU/L (Class 0); Maple/Box Elder <0.10 kU/L (Class 0); Milk (Cow) <0.10 kU/L (Class 0); Mucor racemosus <0.10 kU/L (Class 0); Mugwort <0.10 kU/L (Class 0); Mulberry, White <0.10 kU/L (Class 0); Nettle <0.10 kU/L (Class 0); Oak, White <0.10 kU/L (Class 0); Peanut <0.10 kU/L (Class 0); Penicillium chrysogen <0.10 kU/L (Class 0); Pigweed, Rough <0.10 kU/L (Class 0); Plantain, English <0.10 kU/L (Class 0); Ragweed, Short/Common <0.10 kU/L (Class 0); SCALLOP <0.10 kU/L (Class 0); Sheep Sorrel(Dock) <0.10 kU/L (Class 0); Shrimp <0.10 kU/L (Class 0); Soybean <0.10 kU/L (Class 0); Stemphylium herbarum <0.10 kU/L (Class 0); Sweet Gum <0.10 kU/L (Class 0); Sycamore, American <0.10 kU/L (Class 0); Walnut, (Food) <0.10 kU/L (Class 0); Wheat <0.10 kU/L (Class 0)
[2022-03-12 04:07] LABS: Alternaria tenuis <0.10 kU/L (Class 0); Ash, White <0.10 kU/L (Class 0); Aspergillus fumigatus <0.10 kU/L (Class 0); Bermuda Grass <0.10 kU/L (Class 0); Birch <0.10 kU/L (Class 0); Black Walnut <0.10 kU/L (Class 0); Cat Hair / Dander,Stand <0.10 kU/L (Class 0); Cedar, Mountain <0.10 kU/L (Class 0); Cladosporium herbarum <0.10 kU/L (Class 0); Cockroach, American <0.10 kU/L (Class 0); Cottonwood <0.10 kU/L (Class 0); D farinae Mite <0.10 kU/L (Class 0); D pteronyssinus <0.10 kU/L (Class 0); Dog Epithelia <0.10 kU/L (Class 0); Elm, American White <0.10 kU/L (Class 0); Immunoglobulin A 199 mg/dL (87-352); Immunoglobulin E 9 IU/mL (6-495); Immunoglobulin G 836 mg/dL (586-1602); Immunoglobulin M 57 mg/dL (26-217); Maple/Box Elder <0.10 kU/L (Class 0); Mulberry, White <0.10 kU/L (Class 0); Oak, White <0.10 kU/L (Class 0); Pecan <0.10 kU/L (Class 0); Penicillium Notatum <0.10 kU/L (Class 0); Pigweed, Rough <0.10 kU/L (Class 0); Ragweed, Short/Common <0.10 kU/L (Class 0); Russian Thistle <0.10 kU/L (Class 0); Sheep Sorrel <0.10 kU/L (Class 0); Sycamore, American <0.10 kU/L (Class 0); Timothy Grass <0.10 kU/L (Class 0)
[2022-03-12 17:41] LABS: SESAME SEED <0.10 kU/L (Class 0)
[2022-03-12 18:01] LABS: Immunoglobulin E 10 IU/mL (6-495); Mouse Urine <0.10 kU/L (Class 0)
== END | disposition home or self-care (01) ==
LOC: LAB 15:47
PROVIDERS: PCP Student in an Organized Health Care Education/Training Program; Visit Provider Internal Medicine Gastroenterology
DX: J30.9 Allergic rhinitis, unspecified (principal); K76.0 Fatty (change of) liver, not elsewhere classified
CPT/HCPCS: 36415; 82784; 82785; 85652; 86003; 86140

== ENCOUNTER → 2022-03-08 | Outpatient (CLI) | payer OTHER, SELFPAY ==
[2022-03-10 14:09] LABS: Complement C3 191 mg/dL (82-167)
[2022-03-10 14:27] LABS: Complement CH50 > 60 U/mL (>41)
== END | disposition home or self-care (01) ==
PROVIDERS: PCP Student in an Organized Health Care Education/Training Program; Referring Provider Internal Medicine Gastroenterology; Visit Provider Internal Medicine Gastroenterology
DX: E66.9 Obesity, unspecified (principal)
CPT/HCPCS: 36415; 86160; 86162

== ENCOUNTER → 2022-04-13 | Outpatient (CLI) | payer OTHER, SELFPAY ==
--- NOTE | 2022-04-13 07:08 | BI_ITS ---
MAMMOGRAPHY - BILATERAL SCREENING REASON FOR EXAM: Female, 51 years old. Routine annual screening examination. PERTINENT HISTORY: Mother with breast cancer. Aunt with breast cancer. TECHNIQUE: Digital bilateral breast bronwyn (3D mammographic acquisition) in the CC and MLO projections. 2-D mediolateral oblique (MLO) and craniocaudad (CC) views of both breasts were obtained. CAD: Full Field Digital Mammography with Computer Added Detection was performed. COMPARISON: Comparison is made with prior outside examination dated 01/30/2021 and 01/30/2020. FINDINGS: Breast Composition: The breasts are heterogeneously dense, which may obscure small masses. There are no dominant masses or suspicious calcifications. No other significant abnormalities are identified. There has been no significant change since the prior study. BI/SCRN MAMM (CAD)W/BRONWYN BILAT IMPRESSION: Stable bilateral screening mammogram. Yearly follow-up mammogram recommended. (A) ASSESSMENT CATEGORY: BIRADS Category 1: Negative. A letter regarding these results will be sent to the patient by the facility within 30 days. Approximately 10% of breast cancers are not detected by mammography. A normal mammogram should not delay biopsy of a clinically suspicious abnormality. [id number] Electronically Signed: Dayton Hogan MD at 8:40 EDT ,
== END | disposition home or self-care (01) ==
LOC: OPBI 07:07
PROVIDERS: PCP Student in an Organized Health Care Education/Training Program; Visit Provider Obstetrics & Gynecology
DX: Z12.31 Encounter for screening mammogram for malignant neoplasm of breast (principal)
CPT/HCPCS: 77063; 77067

== ENCOUNTER → 2023-01-13 | Outpatient (CLI) | payer OTHER, SELFPAY ==
[2023-01-13 11:06] LABS: Absolute Lymphocyte Count 1.72 X10^3/uL (0.83-4.51); Absolute Neutrophil Count 3.3 X10^3/uL (2.0-7.7); Basophil# 0.02 X10^3/uL; Basophil% 0.3 % (0-1); Eosinophils% 3.5 % (0-5); Hematocrit 40.5 % (37-47); Hemoglobin 13.4 g/dL (12.0-15.0); Lymphocyte # 1.72 X10^3/ul (0.83-4.51); Mean Corp Hgb Conc 33.1 g/dL (32-36); Mean Corpuscular Hgb 29.3 pg (27.0-32.0); Mean Corpuscular Volume 88.6 fL (81-99); Mean Platelet Vol. 10.9 fl (6.2-12.0); Monocyte# 0.45 X10^3/uL; Monocyte% 7.9 % (0-10); NRBC Flagged by Analyzer 0 % (0-5); Neutrophil # 3.32 X10^3/uL (2.7-7.7); Platelet Count 230 K/mm3 (150-450); RBC Distribution Width CV 13.4 % (11.6-14.6); RBC Distribution Width SD 42.9 fl (35.1-43.9); Red Blood Count 4.57 M/mm3 (4.2-5.4); White Blood Count 5.7 K/mm3 (4.4-11.0)
[2023-01-13 12:16] LABS: ALB/GLOB Ratio 0.9 RATIO (0.9-2.4); AST(SGOT) 40 U/L (15-37); Alanine Aminotransfer ALT/SGPT 67 U/L (13-56); Albumin, Serum 3.5 g/dL (3.2-5.0); Alkaline Phosphatase 93 U/L (45-117); Anion Gap 10 (5-15); BUN 10 mg/dL (7-18); BUN/Creat Ratio 10.8 RATIO (10-20); Calcium,Total 9.5 mg/dL (8.5-10.1); Chloride 107 mmol/L (98-107); Cholesterol 213 mg/dL (200); Creatinine, Serum 0.93 mg/dL (0.55-1.02); EST Glomerular Filtration Rate 67 mL/min (>60); Est Glom Filt Rate - Afr Amer 81 mL/min (>60); Globulin 3.7 g/dL (2.2-4.2); Glucose 106 mg/dL (74-106); High Density Lipoprotein 43 mg/dL; Potassium 4.1 mmol/L (3.5-5.1); Protein, Total 7.2 g/dL (6.4-8.2); Sodium Level 141 mmol/L (136-145); T4 Free Direct 0.94 ng/dL (0.76-1.46); Thyroid Stim Hormone (TSH) 1.37 uIU/mL (0.358-3.74); Triglycerides 322 mg/dL; Very Low Density Lipoprotein 64 mg/dL (5-40)
[2023-01-13 12:23] LABS: HIV - WCH Non-Reactive (Nonreactive); Hepatitis C Antibody Non-Reactive (Nonreactive)
== END | disposition home or self-care (01) ==
PROVIDERS: PCP Student in an Organized Health Care Education/Training Program; Referring Provider Registered Nurse; Visit Provider Registered Nurse
DX: E78.5 Hyperlipidemia, unspecified (principal); E06.3 Autoimmune thyroiditis; Z11.59 Encounter for screening for other viral diseases; E55.9 Vitamin D deficiency, unspecified
CPT/HCPCS: 36415; 80053; 80061; 82306; 84439; 84443; 85025; 86703; 86803

== ENCOUNTER → 2023-01-21 | Outpatient (CLI) | payer OTHER, SELFPAY ==
--- NOTE | 2023-01-21 13:38 | STEWCON_ITS ---
Reason For Study: Chest Pain Stress Results Protocol: Ruben Protocol WITH DEFINITY Maximum Predicted HR: 166 bpm Target HR: 141 bpm % Maximum Predicted HR: 92 % DurationHeart Rate Stage (mm:ss) (bpm) BP Comment Baseline 70 124/82No Chest Pain; 4 ML Diluted Definity Ruben Protocol Stage I 3:00 113 138/80No Chest Pain Ruben Protocol Stage II 3:00 130 142/78Mild Chest Tightness Ruben Protocol Stage III 3:00 150 150/78Mild Chest Tightness; Mild Dyspnea Ruben Protocol Stage IV 0:29 153 / Mild Chest Tightness; Mild Dyspnea Recovery 93 128/82No Chest Pain Stress Duration: 9:29 mm:ss Maximum Stress HR: 153 bpm METS: 11 Baseline Echocardiogram Findings Stress Echo Wall motion Data Resting WM Intermediate WM Stress WM ECHO/Stress Test Echo W/Contrast Interpretation Summary Exercise stress echo. 52-year-old lady with a history of chest pain. Resting EKG demonstrates normal sinus rhythm with a rate of 75 bpm normal inter vals are noted resting blood pressure is 124/82 mmHg. The patient exercised according to regul ar Ruben protocol for total duration of 9 minutes and 29 seconds completing 29 seconds into stage IV of the Ruben protocol. The maximum heart rate attained was 160 bpm which was 96% of max impa cted heart rate the maximum workload was 11.6 metabolic equivalents. At rest there were no ST or T wave changes noted suggest ischemia and at peak exercise upsloping ST changes were noted we did no t meet the criteria for ischemia. No clinical angina was noted the test was terminated due to targe t heart rate being achieved. The patient however did experience mild chest tightness at peak exerc ise. Good blood pressure response to exercise was noted. Stress echocardiogram. Resting echocardiogram demonstrated preserved left ventricular systolic functio n estimated ejection fraction of 55% and at peak exercise echocardiographic images demonstrated impr ovement to ejection fraction of 65% with no wall motion abnormalities noted. Definity was used to e nhance images. Conclusion: Exercise stress echo with no EKG criteria for ischemia at a high workload. Ordering Physician: Renée Matta Referring Physician: Renée Matta Performed By: Linh Russell, LOYDA, RVT
== END | disposition home or self-care (01) ==
LOC: CVS 13:37
PROVIDERS: PCP Student in an Organized Health Care Education/Training Program; Referring Provider Registered Nurse; Visit Provider Registered Nurse
DX: R07.89 Other chest pain (principal)
CPT/HCPCS: 93017; 93350; Q9957; A4216; C8928